=== PATIENT | male | born 2000 | race Caucasian/White ===

== ENCOUNTER 2023-09-22 15:30 | Outpatient (RCR) | payer MEDICAID, SELFPAY ==
--- NOTE | 2023-08-23 16:03 | HP.PTEVAL_ITS ---
Patient's Visit Information Visit Information Visit Information: HUDSON ESPOSITO is a 23 year old M referred to Physical Therapy by AUGUSTO STOLL with a diagnosis of R knee pain. Date of Evaluation: 08/23/23 Physical Therapist: Russell Lance, PT, ATC Visit Plan Frequency: 2-3x /Week Duration: 4-6 Weeks Plan: Core strengthening, R LE stretching and strengthening, balance and proprio, sport specific ex's, bike, and HEP Subjective Subjective: Pt reports he insured his R knee approximately 8 months ago while practicing for football. Pt reports his knee twisted and he experienced a sudden pop. Pt notes he rehabbed his knee over the summer and throughout the season, but his R knee continued to pop and result in a lot of pain. 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 Pt reports his knee has subluxed on several occasions. Pt denies any R LE tingling or numbness at this time. Pt reports difficulty with negotiating stairs at this time secondary to descending stairs causes a lot of pain. Pt lives on the 3rd floor of his dorm. Pt reports sitting for a long period of time increases his pain. Pt reports they have started off season football workouts at the [facility], and he is not able to participate in them at this time. R knee pain is 1/10 while sitting here in the clinic, increases to 4/10 at worst. Pain R knee pain: Pain Intensity (Out of 10): 1 Pain Intensity Range: 4 Objective Objective: Neuro: B LE sensation is WNL to light touch. B patellar reflex= 2/3 Palpation: Significant crepitus with AROM. Pain on medial joint line and on medial patella. Girth at joint line: B knees are 49 cm ROM: L knee 0-125 ; R knee 0-120 degrees MMT: L knee flex= 38, ext= 71 #F; R knee flex= 41, ext= 21 #F Gait: Pt displays minor valgus with ambulation, significant valgus with forward lunge indicating core weakness. Balance/Special Test Scores Lower Extremity Functional Score: 54 Goals Goal 1:: Decrease R knee pain x 50 % to aid with ambulation Goal Time Frame: 4-6 Weeks Goal 2:: Increase R knee ext x 15-20 #F to aid with stair negotiation Goal Time Frame: 4-6 Weeks Goal 3:: I with HEP Goal Time Frame: 4-6 Weeks Rehabilitation Potential Physical Therapy Diagnosis: Pt has R knee pain, weakness, and limited R knee ROM secondary to core instability Rehabilitation Potential: Good Anticipated Interventions Patient/Client Instruction: Educate patient on: Condition and Plan of Care For the Purpose of:: To improve self management Therapeutic Exercise to Include: Strength training, Endurance training, Balance training, Flexibilty training, Active ROM and Shukri Exercises For the Purpose of:: To decrease pain, To increase ROM and To improve muscle performance and motor function Cryotherapy (ice pack, ice massage): Yes For the Purpose of:: To decrease pain Text: Thank you for the opportunity to evaluate your patient. For Medicare and Medicare HMO plans, please review the plan of care and approve it. It will need to be FAXED BACK to us at [phone] for Medicare purposes. For Medicare only, by signing this I certify the plan of care. Please let me know if there are questions or concerns regarding this plan of care. Physician Signature: Date:
--- NOTE | 2023-09-25 18:02 | HP.PTREVAL ---
Re-Evaluation Intro: AUGUSTO STOLL, It has been my pleasure to treat HUDSON ESPOSITO over the last 10 visits for R knee pain. Please see the progress note below for an update on the physical therapy plan of care! Subjective Subjective: I am feeling a lot better. I still am improving Objective Objective/Function: R knee pain ranges from 1-4/10 MMT: flex= 33, ext= 46 #F ROM: 0-120 degrees Pt is I with gym routine Plan Plan Plan: Pt to continue with PT I at [facility]. Recheck or discharge in 1 week. Balance/Gait/Functional tests Balance/Special Test Scores Lower Extremity Functional Score: 59 Goals Goals Goal 1:: Decrease R knee pain x 50 % to aid with ambulation Goal Time Frame: 4-6 Weeks Goal Progress: Progressing Goal 2:: Increase R knee ext x 15-20 #F to aid with stair negotiation Goal Time Frame: 4-6 Weeks Goal Progress: Goal Met Goal 3:: I with HEP Goal Time Frame: 4-6 Weeks Goal Progress: Goal Met Anticipated Interventions Anticipated Interventions Patient/Client Instruction: Educate patient on: Condition and Plan of Care For the Purpose of:: To improve self management Therapeutic Exercise to Include: Strength training, Endurance training, Balance training, Flexibilty training, Active ROM and Shukri Exercises For the Purpose of:: To decrease pain, To increase ROM and To improve muscle performance and motor function Cryotherapy (ice pack, ice massage): Yes For the Purpose of:: To decrease pain Re-Evaluation Ending Re-evaluation ending: Please do not hesitate to contact me at [phone] by phone or if you have questions or concerns regarding this new plan of care! Sincerely, Russell Lance, PT, ATC
--- NOTE | 2023-11-16 15:39 | HP.PT.NRP ---
Patient Information Patient Information: HUDSON ESPOSITO was seen in my office for initial evaluation on 08/23/23. The following Plan of Care was established for this patient: POC Established Initial Frequency: 2-3x /Week Initial Duration: 4-6 Weeks Anticipated Interventions Patient/Client Instruction: Educate patient on: Condition and Plan of Care For the Purpose of:: To improve self management Therapeutic Exercise to Include: Strength training, Endurance training, Balance training, Flexibilty training, Active ROM and Shukri Exercises For the Purpose of:: To decrease pain, To increase ROM and To improve muscle performance and motor function Cryotherapy (ice pack, ice massage): Yes For the Purpose of:: To decrease pain Last Seen Last Seen: This patient was last seen in our office . Pertinent comments regarding their Physical therapy will appear below: Pt was treated for 10 PT visits for R knee pain through the date of 09/25/22. Pt has not returned through todays date and is discontinued at this time. At this point I will be discontinuing this patient from physical therapy. I would be happy to see this patient again in the future if found appropriate by the physician. Thank you! Russell Lance, PT, ATC Balance/Gait/Functional tests Balance/Special Test Scores Lower Extremity Functional Score: 59
== END 2023-09-22 19:00 | disposition home or self-care (01) ==
LOC: PT 15:30
DX: M22.8X1 Other disorders of patella, right knee (principal); M25.561 Pain in right knee
CPT/HCPCS: 97110; 97161